=== PATIENT | male | born 2000 | race Two or more races ===

== ENCOUNTER 2025-04-08 17:38 | Emergency (ER) | payer OTHER ==
[~2025-04-08] VITALS: Ht 177.8 cm; Wt 86.2 kg
[2025-04-08 18:37] VITALS: BP 134/82; O2SAT 100
[2025-04-08] MEDS ORDERED: FAMOTIDINE/PF 20 MG/2 ML VIAL IV PUSH STA (19:00)
[2025-04-08] MEDS ORDERED: FAMOTIDINE/PF 20 MG/2 ML VIAL ONE (19:16)
[2025-04-08 19:39] LABS: BASO % 0.7 % (0.1-1.2); EOS # 0.19 (0.04-0.54); EOS % 2.5 % (0.7-7.0); HEMATOCRIT 46.1 % (40.1-51.0); LYMPH # 2.68 (1.18-3.74); LYMPH % 34.9 % (19.3-53.1); MEAN CORPUSCULAR HEMOGLOBIN 27.7 pg (25.6-32.2); MONO # 0.65 (0.24-0.82); MONO % 8.5 % (4.7-12.5); NEUT # 4.08 (1.56-6.13); NEUT % 52.9 % (34.0-71.1); PLATELET COUNT 316 K/uL (163-369); RED BLOOD COUNT 5.77 M/uL (4.63-6.08); RED CELL DISTRIBUTION WIDTH 12.5 % (11.6-14.4)
[2025-04-08 20:12] LABS: ALBUMIN 4.3 gm/dL (3.4-5.0); BILIRUBIN TOTAL 0.81 mg/dL (0.3-1.2); CALCIUM 9.1 mg/dL (8.5-10.1); CREATININE SERUM 1.08 mg/dL (0.70-1.30); GFR 83.31; GLOBULINA 3.6 G/DL (2.4-3.5); POTASSIUM 3.93 mEq/L (3.5-5.1); TOTAL PROTEIN 7.9 gm/dL (6.4-8.2)
== END 2025-04-08 20:41 | disposition home or self-care (01) ==
LOC: ER 18:20
PROVIDERS: General Practice
DX: K29.70 Gastritis, unspecified, without bleeding (principal)